=== PATIENT | male | born 1960 | race African-American/Black ===

== ENCOUNTER 2016-08-11 10:33 | Inpatient (IN) | payer BC ==
[2016-08-11 10:38] VITALS: BMI 28.5
--- NOTE | 2016-08-11 12:22 | HP ---
CIWA Score - CIWA Score Nausea/Vomitin-No Nausea/No Vomiting Muscle Tremors: 4-Moderate,w/Arms Extend Anxiety: 4-Mod. Anxious/Guarded Agitation: 4-Moderately Restless Paroxysmal Sweats: 1-Minimal Palms Moist Orientation: 0-Oriented Tacttile Disturbances: 3-Moderate Itch/Numb/Burn Auditory Disturbances: 0-None Visual Disturbances: 0-None Headache: 0-None Present CIWA-Ar Total Score: 16 Admission ROS BHS - HPI Chief Complaint: DETOX TX FOR ALCOHOL DEPENDENCE Allergies/Adverse Reactions: Allergies Allergy/AdvReac Type Severity Reaction Status Date / Time No Known Allergies Allergy Verified 08/11/16 11:38 History of Present Illness: 55 Y/O AA/MALE WITH A HX ALCOHOL DEPENDENCE SEEKING DETOX [place] Exam Limitations: No Limitations - Ebola screening Have you traveled outside of the country in the last 21 days: No Have you had contact with anyone from an Ebola affected area: No Have you been sick,other than usual withdrawal symptoms: No Do you have a fever: No - Review of Systems Constitutional: Chills, Night Sweats, Changes in sleep EENT: reports: Blurred Vision (WEARS GLASSES), Tearing, Dental Problems (HX TOOTH EXTRACTIONS) Respiratory: reports: Shortness of Breath (ASTHMA A CHILD --DOES NOT TAKE ANY INHALER), Wheezing Cardiac: reports: Lightheadedness GI: reports: Nausea, Vomiting, Indigestion : reports: No Symptoms Reported Musculoskeletal: reports: Back Pain, Joint Pain Integumentary: reports: Rash (HX ECZEMA) Neuro: reports: Tremors, Unsteady Gait (USES CANE), Dizziness Endocrine: reports: No Symptoms Reported Psychiatric: reports: Orientated x3, Anxious Other Systems: Reviewed and Negative Patient History - Patient Medical History Hx Anemia: No Hx Asthma: Yes (IN [place] AND NEVER ON ANY MDI) Hx Chronic Obstructive Pulmonary Disease (COPD): No Hx Cancer: No Hx Cardiac Disorders: No Hx Congestive Heart Failure: No Hx Hypertension: No Hx Hypercholesterolemia: Yes (NO MEDS) Hx Pacemaker: No HX Cerebrovascular Accident: No Hx Seizures: No Hx Dementia: No Hx Diabetes: No Hx Gastrointestinal Disorders: No Hx Liver Disease: Yes (ELEVATED LIVER ENZYMES) Hx Genitourinary Disorders: No Hx Sexually Transmitted Disorders: No Hx Renal Disease (ESRD): No Hx Thyroid Disease: No Hx Human Immunodeficiency Virus (HIV): No Hx Hepatitis C: No Hx Depression: Yes (NEVER TAKEN MED) Hx Suicide Attempt: No (DENIES) Hx Bipolar Disorder: No Hx Schizophrenia: No - Patient Surgical History Past Surgical History: Yes Hx Neurologic Surgery: No Hx Cataract Extraction: No Hx Cardiac Surgery: No Hx Lung Surgery: No Hx Breast Surgery: No Hx Breast Biopsy: No Hx Abdominal Surgery: No Hx Appendectomy: No Hx Cholecystectomy: No Hx Genitourinary Surgery: No Hx Section: No Hx Orthopedic Surgery: Yes (arthroscopic sx, left knee in 09/03/2014) Anesthesia Reaction: No - PPD History Previous Implant?: Yes Documented Results: Negative w/proof Implanted On Prior R Admission?: Yes Date: 02/05/16 Results: 0 MM PPD to be Administered?: No - Reproductive History Patient is a Female of Child Bearing Age (11 -55 yrs old): No (MALE) - Smoking Cessation Smoking history: Current some day smoker Have you smoked in the past 12 months: Yes Aproximately how many cigarettes per day: 1 If you are a former smoker, when did you quit?: 2014 Hx Chewing Tobacco Use: No Initiated information on smoking cessation: Yes 'Breaking Loose' booklet given: 08/11/16 - Substance & Tx. History Hx Alcohol Use: Yes (COGNAC) Hx Substance Use: No Substance Use Type: Alcohol Hx Substance Use Treatment: Yes ([facility]) - Substances Abused Alcohol Route: Oral Frequency: Daily Amount used: 1 AND 1/2 PINTS VODKA Age of first use: 31 Date of Last Use: 08/11/16 Family Disease History - Family Disease History Family Disease History: Diabetes: Mother (), Heart Disease: Mother, CA: Father (prostate; ) Admission Physical Exam BHS - Vital Signs Vital Signs: Vital Signs - 24 hr 08/11/16 10:35 Temperature 97.8 F Pulse Rate 85 Respiratory 18 Rate Blood Pressure 126/76 - Physical General Appearance: Yes: Moderate Distress, Irritable, Anxious HEENTM: Yes: EOMI, Normocephalic, NITIN, Pharynx Normal Respiratory: Yes: Chest Non-Tender, Lungs Clear, Normal Breath Sounds, No Respiratory Distress Neck: Yes: Supple, Trachea in good position Breast: Yes: Breast Exam Deferred Cardiology: Yes: Regular Rhythm, Regular Rate, S1, S2 Abdominal: Yes: Normal Bowel Sounds, Non Tender, Soft Genitourinary: Yes: Other (N/C) Back: Yes: Within Normal Limits Musculoskeletal: Yes: full range of Motion, Gait Steady Extremities: Yes: Normal Range of Motion, Non-Tender, Tremors Neurological: Yes: police liaison II-XII NML intact, Fully Oriented, Alert Integumentary: Yes: Dry, Warm Lymphatic: Yes: Within Normal Limits - Diagnostic (1) Alcohol dependence with uncomplicated withdrawal Current Visit: Yes Status: Acute (2) Eczema Current Visit: Yes Status: Chronic Qualifiers: Eczema type: flexural Qualified Code(s): L20.82 - Flexural eczema (3) GERD (gastroesophageal reflux disease) Current Visit: Yes Status: Chronic Qualifiers: Esophagitis presence: without esophagitis Qualified Code(s): K21.9 - Gastro-esophageal reflux disease without esophagitis (4) Nicotine abuse Current Visit: Yes Status: Chronic Cleared for Admission S - Detox or Rehab [facility] Level of Care: Medically Managed Detox Regimen/Protocol: Librium S Breath Alcohol Content Breath Alcohol Content: 0.200 Urine Drug Screen - Results Drug Screen Negative: Yes
[2016-08-11] MEDS ORDERED: LOPERAMIDE HCL 2 MG CAPSULE PO PRN (12:29)
[2016-08-11] MEDS ORDERED: MAG HYDROX/AL HYDROX/SIMETH 30 ML UNIT-DOSE CUP PO PRN (12:29)
[2016-08-11] MEDS ORDERED: MAGNESIUM HYDROX 2400MG/30ML ORAL SUSPENSION 30 ML CUP PO PRN (12:29)
[2016-08-11] MEDS ORDERED: ACETAMINOPHEN 325 MG TABLET (FP) PO PRN (12:29)
[2016-08-11] MEDS ORDERED: diphenhydrAMINE HCL 50 MG CAPSULE PO PRN (12:29)
[2016-08-11] MEDS ORDERED: chlordiazePOXIDE HCL 25 MG CAPSULE PO PRN (12:29)
[2016-08-11] MEDS ORDERED: NICOTINE POLACRILEX 2 MG GUM BUC PRN (12:29)
[2016-08-11] MEDS ORDERED: guaiFENesin/D-METHORPHAN HB 10 ML UNIT-DOSE CUPS PO PRN (12:29)
[2016-08-11] MEDS ORDERED: hydrOXYzine PAMOATE 25 MG CAPSULE (FP) PO PRN (12:29)
[2016-08-11] MEDS ORDERED: P-EPHED 60MG/TRIPROLIDI 2.5MG TABLET PO PRN (12:29)
[2016-08-11] MEDS ORDERED: MAGNESIUM CITRATE 300 ML BOTTLE PO PRN (12:29)
[2016-08-11] MEDS ORDERED: IBUPROFEN 400 MG TABLET (FP) PO PRN (12:29)
[2016-08-11] MEDS ORDERED: MENTHOL/PHENOL 1 EACH UD MM PRN (12:29)
[2016-08-11] MEDS ORDERED: chlordiazePOXIDE HCL 25 MG CAPSULE PO ONE (12:50)
[2016-08-11] MEDS: HYDROCORTISONE 1% TOPICAL CREAM 30 GM TUBE TP SCH ×2 (13:23→22:30)
--- NOTE | 2016-08-11 17:12 | EKG ---
Test Reason : Blood Pressure : / mmHG Vent. Rate : 085 BPM Atrial Rate : 085 BPM P-R Int : 158 ms QRS Dur : 084 ms QT Int : 388 ms P-R-T Axes : 052 -11 008 degrees QTc Int : 461 ms NORMAL SINUS RHYTHM POSSIBLE LEFT ATRIAL ENLARGEMENT SEPTAL INFARCT , AGE UNDETERMINED ABNORMAL ECG NO PREVIOUS ECGS AVAILABLE Confirmed by BEATA TEJEDA MD ([id number]) on 08/11/2016 5:12:44 PM Referred By: Confirmed By:BEATA TEJEDA MD
[2016-08-11] MEDS: chlordiazePOXIDE HCL 25 MG CAPSULE PO SCH ×2 (17:22→22:02)
[2016-08-11 19:02] LABS: URINE APPEARANCE CLEAR; URINE BILIRUBIN NEGATIVE (NEGATIVE); URINE COLOR LTYELLOW; URINE GLUCOSE (UA) NEGATIVE (NEGATIVE); URINE KETONE NEGATIVE (NEGATIVE); URINE LEUK ESTERASE NEGATIVE (NEGATIVE); URINE NITRITE NEGATIVE (NEGATIVE); URINE PROTEIN NEGATIVE (NEGATIVE); URINE UROBILINOGEN NEGATIVE E.U./dl (0.2-1.0)
[2016-08-11 19:39] LABS: URINE BLOOD 1+ (NEGATIVE)
[2016-08-11 20:41] LABS: URINE MUCUS RARE; URINE RBC <1 /hpf (0-3); URINE WBC <1 /hpf (3-5)
[2016-08-11] MEDS: THIAMINE HCL 100 MG TABLET (FP) PO SCH (22:02)
[2016-08-12] MEDS: chlordiazePOXIDE HCL 25 MG CAPSULE PO SCH ×4 (05:27→22:06)
[2016-08-12] MEDS: HYDROCORTISONE 1% TOPICAL CREAM 30 GM TUBE TP SCH ×2 (10:19→22:06)
[2016-08-12] MEDS: PRENATAL VITAMINS W/ FOLIC ACID TABLET (FP) PO SCH (10:20)
[2016-08-12 10:39] LABS: MCH 32.4 pg (25.7-33.7); MCHC 33.2 g/dl (32.0-35.9); MEAN CELL VOLUME 97.7 fl (80-96); MEAN PLT VOLUME 9.4 fl (7.5-11.1); PLATELET COUNT 204 K/MM3 (134-434); RDW 15.3 % (11.9-15.9); WHITE BLOOD COUNT 3.4 K/mm3 (4.0-10.0)
[2016-08-12 11:11] LABS: ALK PHOS 283 U/L (45-117); ANION GAP 10 (8-16); CALCIUM 8.6 mg/dL (8.5-10.1); CO2 27 mmol/L (21-32); CREATININE 0.8 mg/dL (0.7-1.3); GLUCOSE,RANDOM 98 mg/dL (74-106); SGOT/AST 109 U/L (15-37); SGPT/ALT 60 U/L (12-78); TOT PROT 7.9 g/dl (6.4-8.2)
--- NOTE | 2016-08-12 11:25 | CONSULT ---
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 Smoking history: Current some day smoker. Have you smoked in the past 12 months: Yes. Aproximately how many cigarettes per day: 1. If you are a former smoker, when did you quit?: 2015. Hx Chewing Tobacco Use: No. Initiated information on smoking cessation: Yes. ' Breaking Loose' booklet given: 08/11/16. - Substance & Tx. History. Hx Alcohol Use: Yes (COGNAC). Hx Substance Use: No. Substance Use Type: Alcohol. Hx Substance Use Treatment: Yes ([facility]). - Substances Abused. Alcohol. Route: Oral. Frequency: Daily. Amount used: 1 AND 1/2 PINTS VODKA. Age of first use: 31. Date of Last Use: 08/11/16 Medical History: Significant for history of Asthma, Hyperlipidemia, Arthritis both knees, elevated liver enzymes and S/p Arthroscopic surgery left knee Psychiatric History: Denies history of previous psychiatric treatment Physical/Sexual Abuse/Trauma History: Denies history of physical, sexual as well as DV relationship Additional Comment: Denies criminal history Mental Status Exam - Mental Status Exam Alert and Oriented to: Time, Place, Person Cognitive Function: Fair Patient Appearance: Well Groomed Mood: Anxious Affect: Appropriate Patient Behavior: Cooperative Speech Pattern: Clear Voice Loudness: Normal Thought Process: Intact Thought Disorder: Not Present Hallucinations: Denies Suicidal Ideation: Denies Homicidal Ideation: Denies Insight/Judgement: Poor Sleep: Poorly Appetite: Fair Muscle strength/Tone: Normal Gait/Station: Normal Psychiatric Findings - Problem List ([place] 1, 2,3) (1) Alcohol dependence with uncomplicated withdrawal Current Visit: Yes Status: Acute (2) Nicotine dependence Current Visit: Yes Status: Acute (3) Eczema Current Visit: Yes Status: Chronic Qualifiers: Eczema type: flexural Qualified Code(s): L20.82 - Flexural eczema (4) GERD (gastroesophageal reflux disease) Current Visit: Yes Status: Chronic Qualifiers: Esophagitis presence: without esophagitis Qualified Code(s): K21.9 - Gastro-esophageal reflux disease without esophagitis (5) History of intrinsic asthma Current Visit: Yes Status: Acute (6) Hyperlipemia Current Visit: Yes Status: Acute (7) Alcohol-induced sleep disorder Current Visit: Yes Status: Acute - Initial Treatment Plan Initial Treatment Plan: 1) Start Ambien 10 mg po HS prn for insomnia. 2) Continue inpatient detoxification
--- NOTE | 2016-08-12 15:25 | PN ---
S CIWA - CIWA Score Nausea/Vomitin Muscle Tremors: 4-Moderate,w/Arms Extend Anxiety: 4-Mod. Anxious/Guarded Agitation: 4-Moderately Restless Paroxysmal Sweats: 3 Orientation: 0-Oriented Tacttile Disturbances: 1-Very Mild Itch/Numbness Auditory Disturbances: 0-None Visual Disturbances: 0-None Headache: 1-Very Mild CIWA-Ar Total Score: 20 BHS Progress Note (SOAP) Subjective: nausea, sweats, interrupted sleep, anxiety, tremors +++ Objective: 08/12/16 15:24 Vital Signs - 24 hr 08/11/16 08/11/16 08/12/16 17:27 21:46 00:23 Temperature 99.3 F 97.8 F Pulse Rate 99 H 105 H Respiratory 18 19 18 Rate Blood Pressure 129/74 149/86 08/12/16 08/12/16 08/12/16 03:25 06:02 09:30 Temperature 97.5 F L 97.4 F L Pulse Rate 91 H 110 H Respiratory 18 18 20 Rate Blood Pressure 146/95 138/92 08/12/16 13:19 Temperature 97.6 F Pulse Rate 85 Respiratory 18 Rate Blood Pressure 146/91 tachycardia, htn Laboratory Tests 08/11/16 08/12/16 08/12/16 14:00 06:15 06:15 WBC 3.4 L RBC 4.55 Hgb 14.8 Hct 44.5 MCV 97.7 H MCHC 33.2 RDW 15.3 Plt Count 204 D MPV 9.4 Sodium 140 Potassium 3.9 D Chloride 103 Carbon Dioxide 27 Anion Gap 10 BUN 7 Creatinine 0.8 Creat Clearance w eGFR > 60 Random Glucose 98 Calcium 8.6 Total Bilirubin 1.0 D AST 109 H ALT 60 Alkaline Phosphatase 283 H Total Protein 7.9 Albumin 4.0 D Urine Color Ltyellow Urine Appearance Clear Urine pH 6.0 Ur Specific [place] 1.008 Urine Protein Negative Urine Glucose (UA) Negative Urine Ketones Negative Urine Blood 1+ H Urine Nitrite Negative Urine Bilirubin Negative Urine Urobilinogen Negative Ur Leukocyte Esterase Negative Urine RBC <1 Urine WBC <1 Ur Epithelial Cells Rare Urine Mucus Rare RPR Titer 08/12/16 06:15 WBC RBC Hgb Hct MCV MCHC RDW Plt Count MPV Sodium Potassium Chloride Carbon Dioxide Anion Gap BUN Creatinine Creat Clearance w eGFR Random Glucose Calcium Total Bilirubin AST ALT Alkaline Phosphatase Total Protein Albumin Urine Color Urine Appearance Urine pH Ur Specific [place] Urine Protein Urine Glucose (UA) Urine Ketones Urine Blood Urine Nitrite Urine Bilirubin Urine Urobilinogen Ur Leukocyte Esterase Urine RBC Urine WBC Ur Epithelial Cells Urine Mucus RPR Titer Nonreactive macrocytosis Assessment: 08/12/16 15:25 withdrawawl sx present Plan: cont detox, prn doses encouraged, hydration, ambulation
[2016-08-12] MEDS: THIAMINE HCL 100 MG TABLET (FP) PO SCH (22:07)
[2016-08-12] MEDS: ZOLPIDEM TARTRATE 10 MG TABLET (PARK CARE ONLY) PO PRN (22:07)
[2016-08-13] MEDS: chlordiazePOXIDE HCL 25 MG CAPSULE PO SCH ×2 (05:35→10:12)
--- NOTE | 2016-08-13 09:56 | PN ---
S CIWA - CIWA Score Nausea/Vomitin Muscle Tremors: 3 Anxiety: 2 Agitation: 2 Paroxysmal Sweats: 3 Orientation: 0-Oriented Tacttile Disturbances: 1-Very Mild Itch/Numbness Auditory Disturbances: 0-None Visual Disturbances: 0-None Headache: 1-Very Mild CIWA-Ar Total Score: 14 S Progress Note (SOAP) Subjective: shakes, sweats, restlessness and abdominal cramps Objective: 08/13/16 09:54 Vital Signs - 8 hr 08/13/16 08/13/16 03:25 06:18 Temperature 96.9 F L Pulse Rate 89 Respiratory 16 18 Rate Blood Pressure 134/90 Laboratory Last Values WBC 3.4 K/mm3 (4.0-10.0) L 08/12/16 06:15 RBC 4.55 M/mm3 (4.00-5.60) 08/12/16 06:15 Hgb 14.8 GM/dL (11.7-16.9) 08/12/16 06:15 Hct 44.5 % (35.4-49) 08/12/16 06:15 MCV 97.7 fl (80-96) H 08/12/16 06:15 MCHC 33.2 g/dl (32.0-35.9) 08/12/16 06:15 RDW 15.3 % (11.9-15.9) 08/12/16 06:15 Plt Count 204 K/MM3 (134-434) D 08/12/16 06:15 MPV 9.4 fl (7.5-11.1) 08/12/16 06:15 Sodium 140 mmol/L (136-145) 08/12/16 06:15 Potassium 3.9 mmol/L (3.5-5.1) D 08/12/16 06:15 Chloride 103 mmol/L (98-107) 08/12/16 06:15 Carbon Dioxide 27 mmol/L (21-32) 08/12/16 06:15 Anion Gap 10 (8-16) 08/12/16 06:15 BUN 7 mg/dL (7-18) 08/12/16 06:15 Creatinine 0.8 mg/dL (0.7-1.3) 08/12/16 06:15 Creat Clearance w eGFR > 60 (>60) 08/12/16 06:15 Random Glucose 98 mg/dL (74-106) 08/12/16 06:15 Calcium 8.6 mg/dL (8.5-10.1) 08/12/16 06:15 Total Bilirubin 1.0 mg/dL (0.2-1.0) D 08/12/16 06:15 AST 109 U/L (15-37) H 08/12/16 06:15 ALT 60 U/L (12-78) 08/12/16 06:15 Alkaline Phosphatase 283 U/L (45-117) H 08/12/16 06:15 Total Protein 7.9 g/dl (6.4-8.2) 08/12/16 06:15 Albumin 4.0 g/dl (3.4-5.0) D 08/12/16 06:15 Urine Color Ltyellow 08/11/16 14:00 Urine Appearance Clear 08/11/16 14:00 Urine pH 6.0 (5.0-8.0) 08/11/16 14:00 Ur Specific [place] 1.008 (1.001-1.035) 08/11/16 14:00 Urine Protein Negative (NEGATIVE) 08/11/16 14:00 Urine Glucose (UA) Negative (NEGATIVE) 08/11/16 14:00 Urine Ketones Negative (NEGATIVE) 08/11/16 14:00 Urine Blood 1+ (NEGATIVE) H 08/11/16 14:00 Urine Nitrite Negative (NEGATIVE) 08/11/16 14:00 Urine Bilirubin Negative (NEGATIVE) 08/11/16 14:00 Urine Urobilinogen Negative E.U./dl (0.2-1.0) 08/11/16 14:00 Ur Leukocyte Esterase Negative (NEGATIVE) 08/11/16 14:00 Urine RBC <1 /hpf (0-3) 08/11/16 14:00 Urine WBC <1 /hpf (3-5) 08/11/16 14:00 Ur Epithelial Cells Rare /hpf (FEW) 08/11/16 14:00 Urine Mucus Rare 08/11/16 14:00 RPR Titer Nonreactive (NONREACTIVE) 08/12/16 06:15 Labs noted Assessment: 08/13/16 09:55 withdrawal sx Plan: continue detox
[2016-08-13] MEDS: HYDROCORTISONE 1% TOPICAL CREAM 30 GM TUBE TP SCH ×2 (10:12→21:57)
[2016-08-13] MEDS: PRENATAL VITAMINS W/ FOLIC ACID TABLET (FP) PO SCH (10:12)
[2016-08-13] MEDS ORDERED: TETRAHYDROZOLINE HCL 1 DROP DROPS OU PRN (15:25)
[2016-08-13] MEDS: chlordiazePOXIDE 5 MG CAPSULE PO SCH ×2 (17:11→22:00)
[2016-08-13] MEDS: THIAMINE HCL 100 MG TABLET (FP) PO SCH (21:57)
[2016-08-13] MEDS: NAPHAZOLINE/PHENIRAMINE OPHTHALMIC 15 ML BOTTLE OU PRN (21:58)
[2016-08-13] MEDS: ZOLPIDEM TARTRATE 10 MG TABLET (PARK CARE ONLY) PO PRN (22:02)
[2016-08-14] MEDS: chlordiazePOXIDE 5 MG CAPSULE PO SCH ×2 (05:50→10:09)
[2016-08-14] MEDS: PRENATAL VITAMINS W/ FOLIC ACID TABLET (FP) PO SCH (10:09)
[2016-08-14] MEDS: NAPHAZOLINE/PHENIRAMINE OPHTHALMIC 15 ML BOTTLE OU PRN (10:10)
[2016-08-14] MEDS: HYDROCORTISONE 1% TOPICAL CREAM 30 GM TUBE TP SCH ×2 (10:10→22:02)
--- NOTE | 2016-08-14 11:40 | PN ---
[id number] 11:36 Last Vital Signs Temp Pulse Resp BP Pulse Ox 97.1 F L 101 H 18 147/93 08/14/16 11:23 08/14/16 11:23 08/14/16 11:23 08/14/16 11:23 Laboratory Tests 08/11/16 08/12/16 08/12/16 14:00 06:15 06:15 WBC 3.4 L RBC 4.55 Hgb 14.8 Hct 44.5 MCV 97.7 H MCHC 33.2 RDW 15.3 Plt Count 204 D MPV 9.4 Sodium 140 Potassium 3.9 D Chloride 103 Carbon Dioxide 27 Anion Gap 10 BUN 7 Creatinine 0.8 Creat Clearance w eGFR > 60 Random Glucose 98 Calcium 8.6 Total Bilirubin 1.0 D AST 109 H ALT 60 Alkaline Phosphatase 283 H Total Protein 7.9 Albumin 4.0 D Urine Color Ltyellow Urine Appearance Clear Urine pH 6.0 Ur Specific [place] 1.008 Urine Protein Negative Urine Glucose (UA) Negative Urine Ketones Negative Urine Blood 1+ H Urine Nitrite Negative Urine Bilirubin Negative Urine Urobilinogen Negative Ur Leukocyte Esterase Negative Urine RBC <1 Urine WBC <1 Ur Epithelial Cells Rare Urine Mucus Rare RPR Titer 08/12/16 06:15 WBC RBC Hgb Hct MCV MCHC RDW Plt Count MPV Sodium Potassium Chloride Carbon Dioxide Anion Gap BUN Creatinine Creat Clearance w eGFR Random Glucose Calcium Total Bilirubin AST ALT Alkaline Phosphatase Total Protein Albumin Urine Color Urine Appearance Urine pH Ur Specific [place] Urine Protein Urine Glucose (UA) Urine Ketones Urine Blood Urine Nitrite Urine Bilirubin Urine Urobilinogen Ur Leukocyte Esterase Urine RBC Urine WBC Ur Epithelial Cells Urine Mucus RPR Titer Nonreactive Labs noted: UA 1+ blood Assessment: 08/14/16 11:39 Withdrawal symptoms Elevated blood pressure Hematuria, microscopic Plan: Continue detox Elevated blood pressure: clonidine 0.1mg q8hr prn Microscopic hematuria: encouraged to drink lots of water, repeat UA
[2016-08-14] MEDS ORDERED: cloNIDine HCL 0.1 MG TABLET PO PRN (11:43)
[2016-08-14] MEDS: chlordiazePOXIDE HCL 10 MG CAPSULE PO SCH ×2 (17:21→22:01)
[2016-08-14 17:27] LABS: URINE APPEARANCE CLEAR; URINE BILIRUBIN NEGATIVE (NEGATIVE); URINE BLOOD NEGATIVE (NEGATIVE); URINE COLOR LTYELLOW; URINE GLUCOSE (UA) NEGATIVE (NEGATIVE); URINE KETONE NEGATIVE (NEGATIVE); URINE LEUK ESTERASE NEGATIVE (NEGATIVE); URINE NITRITE NEGATIVE (NEGATIVE); URINE PROTEIN NEGATIVE (NEGATIVE); URINE UROBILINOGEN 2.0 E.U/dl E.U./dl (0.2-1.0)
[2016-08-14] MEDS: THIAMINE HCL 100 MG TABLET (FP) PO SCH (22:01)
[2016-08-14] MEDS: ZOLPIDEM TARTRATE 10 MG TABLET (PARK CARE ONLY) PO PRN (22:01)
[2016-08-15] MEDS: chlordiazePOXIDE HCL 10 MG CAPSULE PO SCH (05:30)
--- NOTE | 2016-08-15 08:57 | PN ---
BHS Progress Note (SOAP) Subjective: no complaints Objective: 08/15/16 08:55 Vital Signs - 8 hr 08/15/16 08/15/16 03:30 06:07 Temperature 97.1 F L Pulse Rate 98 H Respiratory 18 18 Rate Blood Pressure 145/93 Laboratory Tests 08/11/16 08/12/16 08/12/16 14:00 06:15 06:15 WBC 3.4 L RBC 4.55 Hgb 14.8 Hct 44.5 MCV 97.7 H MCHC 33.2 RDW 15.3 Plt Count 204 D MPV 9.4 Sodium 140 Potassium 3.9 D Chloride 103 Carbon Dioxide 27 Anion Gap 10 BUN 7 Creatinine 0.8 Creat Clearance w eGFR > 60 Random Glucose 98 Calcium 8.6 Total Bilirubin 1.0 D AST 109 H ALT 60 Alkaline Phosphatase 283 H Total Protein 7.9 Albumin 4.0 D Urine Color Ltyellow Urine Appearance Clear Urine pH 6.0 Ur Specific [place] 1.008 Urine Protein Negative Urine Glucose (UA) Negative Urine Ketones Negative Urine Blood 1+ H Urine Nitrite Negative Urine Bilirubin Negative Urine Urobilinogen Negative Ur Leukocyte Esterase Negative Urine RBC <1 Urine WBC <1 Ur Epithelial Cells Rare Urine Mucus Rare RPR Titer 08/12/16 08/14/16 06:15 14:17 WBC RBC Hgb Hct MCV MCHC RDW Plt Count MPV Sodium Potassium Chloride Carbon Dioxide Anion Gap BUN Creatinine Creat Clearance w eGFR Random Glucose Calcium Total Bilirubin AST ALT Alkaline Phosphatase Total Protein Albumin Urine Color Ltyellow Urine Appearance Clear Urine pH 8.0 D Ur Specific [place] 1.008 Urine Protein Negative Urine Glucose (UA) Negative Urine Ketones Negative Urine Blood Negative Urine Nitrite Negative Urine Bilirubin Negative Urine Urobilinogen 2.0 e.u/dl Ur Leukocyte Esterase Negative Urine RBC Urine WBC Ur Epithelial Cells Urine Mucus RPR Titer Nonreactive Assessment: 08/15/16 08:56 completed detox, medically stable Plan: d/c today, f/u rehab [facility]
--- NOTE | 2016-08-15 08:59 | DS ---
[facility] Detox Discharge Summary Admission Date: 08/11/16 Discharge Date: 08/15/16 - History Present History: Alcohol Dependence Pertinent Past History: eczema, nicotine dependence, asthma, GERD, anxiety, depression and insomnia - Physical Exam Results Vital Signs: Vital Signs Temperature 97.1 F L 08/15/16 06:07 Pulse Rate 98 H 08/15/16 06:07 Respiratory Rate 18 08/15/16 06:07 Blood Pressure 145/93 08/15/16 06:07 O2 Sat by Pulse Oximetry (%) Pertinent Admission Physical Exam Findings: withdrawal sx - Treatment Hospital Course: Detox Protocol Followed, Detoxed Safely, Responded well, Discharged Condition Good, Rehab Referral Accepted Patient has Accepted a Rehab Referral to: Yes - Medication Discharge Medications: Ambulatory Orders NK [No Known Home Medication] 08/11/16 - Diagnosis (1) Alcohol dependence with uncomplicated withdrawal Current Visit: Yes Status: Acute (2) Alcohol-induced sleep disorder Current Visit: Yes Status: Acute (3) History of intrinsic asthma Current Visit: Yes Status: Acute (4) Hyperlipemia Current Visit: Yes Status: Acute (5) Nicotine dependence Current Visit: Yes Status: Acute (6) Eczema Current Visit: Yes Status: Chronic Qualifiers: Eczema type: flexural Qualified Code(s): L20.82 - Flexural eczema (7) GERD (gastroesophageal reflux disease) Current Visit: Yes Status: Chronic Qualifiers: Esophagitis presence: without esophagitis Qualified Code(s): K21.9 - Gastro-esophageal reflux disease without esophagitis (8) Nicotine abuse Current Visit: Yes Status: Chronic (9) Drug-induced mood disorder Current Visit: No Status: Suspected - AMA Did Patient Leave Against Medical Advice: No
[2016-08-15 09:16] VITALS: BP 144/85; PULSE 95; TEMP 98.2
== END 2016-08-15 08:55 | disposition home or self-care (01) | DRG 897 ==
LOC: YASAS 10:33 → Y3N 12:43
PROVIDERS: ADMIT Internal Medicine; ATTEND Internal Medicine
PROC: HZ2ZZZZ Detoxification Services for Substance Abuse Treatment (ICD-10-PCS; principal; 2016-08-11)
DX: F10.230 Alcohol dependence with withdrawal, uncomplicated (principal); F17.210 Nicotine dependence, cigarettes, uncomplicated; F10.282 Alcohol dependence with alcohol-induced sleep disorder; F19.24 Other psychoactive substance dependence with psychoactive substance-induced mood disorder; E78.5 Hyperlipidemia, unspecified; L20.82 Flexural eczema; K21.9 Gastro-esophageal reflux disease without esophagitis; R03.0 Elevated blood-pressure reading, without diagnosis of hypertension; D75.89 Other specified diseases of blood and blood-forming organs; R94.5 Abnormal results of liver function studies; Z87.09 Personal history of other diseases of the respiratory system
CPT/HCPCS: 36415; 80053; 81003; 81015; 85027; 86593; 93005; 93010

== ENCOUNTER 2019-03-26 14:30 | Inpatient (IN) | payer OTHER ==
[2019-03-26 19:23] VITALS: BMI 28.2
--- NOTE | 2019-03-26 20:48 | HP ---
CIWA Score Nausea/Vomitin-No Nausea/No Vomiting Muscle Tremors: 4-Moderate,w/Arms Extend Anxiety: 4-Mod. Anxious/Guarded Agitation: 4-Moderately Restless Paroxysmal Sweats: No Perspiration Orientation: 0-Oriented Tacttile Disturbances: 2-Mild Itch/Numbness/Burn Auditory Disturbances: 0-None Visual Disturbances: 0-None Headache: 0-None Present CIWA-Ar Total Score: 14 - Admission Criteria OASAS Guidelines: Admission for Medically Managed Detox: Requires at least one of the followin. CIWA greater than 12 2. Seizures within the past 24 hours 3. Delirium tremens within the past 24 hours 4. Hallucinations within the past 24 hours 5. Acute intervention needed for co occurring medical disorder 6. Acute intervention needed for co occurring psychiatric disorder 7. Severe withdrawal that cannot be handled at a lower level of care (continued vomiting, continued diarrhea, abnormal vital signs) requiring intravenous medication and/or fluids 8. Patient presents the following: CIWA greater than 12 Admission Criteria Met: Admission criteria met Admission ROS [facility] - [facility] Chief Complaint: C/O WITHDRAWAL SX'S. Allergies/Adverse Reactions: Allergies Allergy/AdvReac Type Severity Reaction Status Date / Time No Known Allergies Allergy Verified 03/26/19 19:17 History of Present Illness: 58 Y.O. MALE WITH LONG HX/O ALCOHOLISM HERE FOR DETOX. CLIENT IS SELF REFERRED DUE TO A DOMESTIC CASE. HE IS KNOWN TO THIS PROGRAM LAST ADMISSION 2017. REPORTS HE DRINK APPROX 4 X A WEEK. LAST DRINK EARLY THIS MORNING. + EYE SWEATBAND SHAPER AND + CIWA. DENIES SEIZURES, BLACKOUTS. DENIES ANY SIGNIFICANT PERIOD OF CLEAN TIME. LIVES ALONE, DISABILITY, DENIES LEGALS. Exam Limitations: No Limitations - Ebola screening Have you traveled outside of the country in the last 21 days: No (N) Have you had contact with anyone from an Ebola affected area: No Do you have a fever: No - Review of Systems Constitutional: Loss of Appetite EENT: reports: Other (EYE GLASSES) Respiratory: reports: No Symptoms reported Cardiac: reports: No Symptoms Reported GI: reports: Poor Appetite, Poor Fluid Intake : reports: No Symptoms Reported Musculoskeletal: reports: Back Pain (CHRONIC), Joint Pain (CHRONIC KNEE AND SHOULDER PAINS) Integumentary: reports: No Symptoms Reported Neuro: reports: Numbness, Tremors (R/T WITHDRAWAL) Endocrine: reports: No Symptoms Reported Hematology: reports: No Symptoms Reported Psychiatric: reports: Orientated x3, Anxious, Depressed (DENIES SI) Other Systems: Reviewed and Negative Patient History - Patient Medical History Hx Anemia: No Hx Asthma: Yes (IN [place] AND NEVER ON ANY MDI) Hx Chronic Obstructive Pulmonary Disease (COPD): No Hx Cancer: No Hx Cardiac Disorders: No Hx Congestive Heart Failure: No Hx Hypertension: No Hx Hypercholesterolemia: Yes (NO MEDS) Hx Pacemaker: No HX Cerebrovascular Accident: No Hx Seizures: No Hx Dementia: No Hx Diabetes: No Hx Gastrointestinal Disorders: No Hx Liver Disease: Yes (ELEVATED LIVER ENZYMES) Hx Genitourinary Disorders: No Hx Sexually Transmitted Disorders: No Hx Renal Disease (ESRD): No Hx Thyroid Disease: No Hx Human Immunodeficiency Virus (HIV): No Hx Hepatitis C: No Hx Depression: Yes (NEVER TAKEN MED) Hx Suicide Attempt: No (DENIES) Hx Bipolar Disorder: No Hx Schizophrenia: No - Patient Surgical History Past Surgical History: Yes Hx Neurologic Surgery: No Hx Cataract Extraction: No Hx Cardiac Surgery: No Hx Lung Surgery: No Hx Breast Surgery: No Hx Breast Biopsy: No Hx Abdominal Surgery: No Hx Appendectomy: No Hx Cholecystectomy: No Hx Genitourinary Surgery: No Hx Section: No Hx Orthopedic Surgery: Yes (arthroscopic sx, left knee in 09/03/2014) Anesthesia Reaction: No - PPD History Previous Implant?: Yes Documented Results: Negative w/proof Implanted On Prior [facility] Admission?: Yes Date: 02/05/16 Results: 0 MM PPD to be Administered?: Yes - Smoking Cessation Smoking history: Former smoker Have you smoked in the past 12 months: No Aproximately how many cigarettes per day: 10 If you are a former smoker, when did you quit?: 2008 Cigars Per Day: 0 Hx Chewing Tobacco Use: No Initiated information on smoking cessation: No - Substance & Tx. History Hx Alcohol Use: Yes Hx Substance Use: Yes Substance Use Type: Alcohol, Marijuana (STATES ONE TIME A FEW WEEKS AGO) Hx Substance Use Treatment: Yes ([facility]) - Substances abused Alcohol Substance route: Oral Frequency: 3-6 times per week (4X A WEEK) Amount used: 1 pint of whiskey Age of first use: 34 Date of last use: 03/26/19 Family Disease History - Family Disease History Family Disease History: Diabetes: Mother (), Heart Disease: Mother, CA: Father (prostate; ) Admission Physical Exam [facility] - Vital Signs Vital Signs: Vital Signs - 24 hr 03/26/19 03/26/19 19:19 19:30 Temperature 99.3 F 99.3 F Pulse Rate 104 H 104 H Respiratory 16 16 Rate Blood Pressure 168/83 168/83 - Physical General Appearance: Yes: Alcohol on Breath, Tremorous, Anxious HEENTM: Yes: EOMI, Normocephalic, Normal Voice, NITIN, Pharynx Normal, Other ( MISSING TEETH) Respiratory: Yes: Chest Non-Tender, Lungs Clear, Normal Breath Sounds, No Respiratory Distress, No Accessory Muscle Use Neck: Yes: No masses,lesions,Nodules, Supple, Trachea in good position Breast: Yes: Breast Exam Deferred Cardiology: Yes: Regular Rhythm, Regular Rate, S1, S2 Abdominal: Yes: Normal Bowel Sounds, Non Tender, Soft Genitourinary: Yes: Within Normal Limits (NO C/O OFFERED) Back: Yes: Normal Inspection Musculoskeletal: Yes: full range of Motion, Gait Steady Extremities: Yes: Non-Tender, Tremors, Pedal Edema (PITTING EDEMA OF BLE), Other (DECREASE ROM TO LEFT SHOULD DUE TO AN OLD INJURY FROM A FALL) Neurological: Yes: Fully Oriented, Alert, Normal Mood/Affect (ANXIOUS) Integumentary: Yes: Dry, Warm Lymphatic: Yes: Within Normal Limits - Diagnostic (1) Alcohol dependence with uncomplicated withdrawal Current Visit: Yes Status: Acute (2) Hyperlipemia Current Visit: Yes Status: Chronic Qualifiers: Hyperlipidemia type: unspecified Qualified Code(s): E78.5 - Hyperlipidemia , unspecified (3) GERD (gastroesophageal reflux disease) Current Visit: Yes Status: Chronic Qualifiers: Esophagitis presence: without esophagitis Qualified Code(s): K21.9 - Gastro -esophageal reflux disease without esophagitis (4) Drug-induced mood disorder Current Visit: Yes Status: Suspected Comment: [facility] Cleared for Admission [facility] - Detox or Rehab [facility] Level of Care: Medically Managed Detox Regimen/Protocol: Librium Claeared for Rehab Admission: No Breathalyzer - Breathalyzer Breathalyzer: 0.139 Urine Drug Screen - Test Device Lot number: [id number] Expiration date: 12/21/20 - Control Is test valid?: Yes - Results Drug screen NEGATIVE: No Urine drug screen results: THC-Marijuana
[2019-03-26] MEDS ORDERED: IBUPROFEN 400 MG TABLET (FP) PO PRN (20:56)
[2019-03-26] MEDS ORDERED: MENTHOL/PHENOL 1 EACH UD MM PRN (20:56)
[2019-03-26] MEDS ORDERED: MAGNESIUM CITRATE 300 ML BOTTLE PO PRN (20:56)
[2019-03-26] MEDS ORDERED: guaiFENesin 200 MG/10 ML 10 ML UNIT-DOSE CUPS PO PRN (20:56)
[2019-03-26] MEDS ORDERED: P-EPHED 60MG/TRIPROLIDI 2.5MG TABLET PO PRN (20:56)
[2019-03-26] MEDS ORDERED: METHOCARBAMOL 500 MG TABLET PO PRN (20:56)
[2019-03-26] MEDS ORDERED: ACETAMINOPHEN 325 MG TABLET (FP) PO PRN ×2 (20:56)
[2019-03-26] MEDS ORDERED: hydrOXYzine PAMOATE 25 MG CAPSULE (FP) PO PRN (20:56)
[2019-03-26] MEDS ORDERED: DICYCLOMINE HCL 10 MG CAPSULE PO PRN (20:56)
[2019-03-26] MEDS ORDERED: ONDANSETRON *ODT* 4 MG TABLET SL PRN (20:56)
[2019-03-26] MEDS ORDERED: chlordiazePOXIDE HCL 25 MG CAPSULE PO PRN (20:56)
[2019-03-26] MEDS ORDERED: BISMUTH SUBSALICYLATE 524 MG/30 ML UD PO PRN (20:56)
[2019-03-26] MEDS ORDERED: MAGNESIUM HYDROX 2400MG/30ML ORAL SUSPENSION 30 ML CUP PO PRN (20:56)
[2019-03-26] MEDS: chlordiazePOXIDE HCL 25 MG CAPSULE PO SCH (22:39)
[2019-03-26] MEDS: THIAMINE HCL 100 MG TABLET (FP) PO SCH (22:39)
[2019-03-26] MEDS: MELATONIN 5 MG TABLETS PO PRN (22:40)
[2019-03-27] MEDS: chlordiazePOXIDE HCL 25 MG CAPSULE PO SCH ×4 (05:40→22:12)
--- NOTE | 2019-03-27 10:06 | EKG ---
Test Reason : Blood Pressure : / mmHG Vent. Rate : 075 BPM Atrial Rate : 075 BPM P-R Int : 164 ms QRS Dur : 082 ms QT Int : 426 ms P-R-T Axes : 061 -05 018 degrees QTc Int : 475 ms NORMAL SINUS RHYTHM POSSIBLE LEFT ATRIAL ENLARGEMENT SEPTAL INFARCT (CITED ON OR BEFORE 11-AUG-2016) ABNORMAL ECG WHEN COMPARED WITH ECG OF 11-AUG-2016 13:34, NO SIGNIFICANT CHANGE WAS FOUND Confirmed by MINA TORRES MD ([id number]) on 03/27/2019 10:06:01 AM Referred By: Confirmed By:MINA TORRES MD
[2019-03-27] MEDS: PRENATAL VITAMINS W/ FOLIC ACID TABLET (FP) PO SCH (10:12)
--- NOTE | 2019-03-27 10:29 | PN ---
S CIWA - CIWA Score Nausea/Vomitin-Mild Nausea/No Vomiting Muscle Tremors: 3 Anxiety: 2 Agitation: 2 Paroxysmal Sweats: 2 Orientation: 0-Oriented Tacttile Disturbances: 0-None Auditory Disturbances: 0-None Visual Disturbances: 0-None Headache: 1-Very Mild CIWA-Ar Total Score: 11 S Progress Note (SOAP) Subjective: 58 years old male 1st patient [facility] admission since 2017 was admitted on 03/26/19 for alcohol withdrawal sx management doing well with libirum detox regimen requests to be discharged one day early modify libirum detox regimen to meet the need of the patient Objective: 03/27/19 10:29 Vital Signs Temperature 98.1 F 03/27/19 09:06 Pulse Rate 78 03/27/19 09:06 Respiratory Rate 18 03/27/19 09:06 Blood Pressure 135/77 03/27/19 09:06 O2 Sat by Pulse Oximetry (%) lab pending Assessment: 03/27/19 10:29 alcohol withdrawal sx 03/27/19 10:30 alert oriented x 3 speech clearly ambulating from bed to bathroom steady gait tolerate food and fluid well Plan: continue libirum detox regimen
[2019-03-27 12:25] LABS: ALBUMIN 3.1 g/dl (3.4-5.0); BILIRUBIN,TOTAL 0.7 mg/dL (0.2-1); BLOOD UREA NITROGEN 5.1 mg/dL (7-18); CALCIUM 8.6 mg/dL (8.5-10.1); CREATININE 0.6 mg/dL (0.55-1.3); POTASSIUM 3.3 mmol/L (3.5-5.1); TOT PROT 6.8 g/dl (6.4-8.2)
[2019-03-27 12:30] LABS: HEMATOCRIT 35.8 % (35.4-49); HEMOGLOBIN 11.6 GM/dL (11.7-16.9); MCH 25.9 pg (25.7-33.7); MCHC 32.4 g/dl (32.0-35.9); MEAN CELL VOLUME 80.1 fl (80-96); MEAN PLT VOLUME 8.5 fl (7.5-11.1); PLATELET COUNT 165 K/MM3 (134-434); RBC 4.47 M/mm3 (4.00-5.60); RDW 19.2 % (11.9-15.9); WHITE BLOOD COUNT 2.4 K/mm3 (4.0-10.0)
[2019-03-27] MEDS: MAG HYDROX/AL HYDROX/SIMETH 30 ML UNIT-DOSE CUP PO PRN (13:20)
[2019-03-27] MEDS: POTASSIUM CHLORIDE ORAL LIQUID 20 MEQ/15 ML PO SCH (18:06)
[2019-03-27] MEDS: MELATONIN 5 MG TABLETS PO PRN (22:12)
[2019-03-27] MEDS: THIAMINE HCL 100 MG TABLET (FP) PO SCH (22:12)
[2019-03-27 22:45] LABS: EPI CELLS 5.7 /HPF (0-5/HPF); HYALINE CASTS 19 /lpf (0-8); PH,URINE 6.5 (5.0-8.0); URINE APPEARANCE CLEAR; URINE BACTERIA 0.7 /hpf (NEGATIVE); URINE BILIRUBIN 1+ (NEGATIVE); URINE COLOR DK YELLOW; URINE GLUCOSE (UA) NEGATIVE (NEGATIVE); URINE KETONE TRACE (NEGATIVE); URINE LEUK ESTERASE NEGATIVE (NEGATIVE); URINE NITRITE NEGATIVE (NEGATIVE); URINE PROTEIN 1+ (NEGATIVE); URINE RBC 4 /hpf (0-4); URINE WBC 1 /hpf (0-5)
[2019-03-28] MEDS ORDERED: chlordiazePOXIDE HCL 25 MG CAPSULE PO SCH (05:00)
[2019-03-28] MEDS: chlordiazePOXIDE HCL 10 MG CAPSULE PO SCH ×3 (05:23→22:11)
[2019-03-28] MEDS: POTASSIUM CHLORIDE ORAL LIQUID 20 MEQ/15 ML PO SCH ×2 (05:24→17:09)
[2019-03-28] MEDS: PRENATAL VITAMINS W/ FOLIC ACID TABLET (FP) PO SCH (10:15)
--- NOTE | 2019-03-28 15:31 | PN ---
S CIWA - CIWA Score Nausea/Vomitin-No Nausea/No Vomiting Muscle Tremors: 3 Anxiety: 2 Agitation: 2 Paroxysmal Sweats: No Perspiration Orientation: 0-Oriented Tacttile Disturbances: 2-Mild Itch/Numbness/Burn Auditory Disturbances: 2-Mild Harshness/Frighten Visual Disturbances: 0-None Headache: 0-None Present CIWA-Ar Total Score: 11 S Progress Note (SOAP) Subjective: Anxious, Tremors, Sweating. Objective: PATIENT A & O X 3, OBSERVED AMBULATING ON UNIT UNASSISTED. IN NO ACUTE DISTRESS. 03/28/19 15:33 Vital Signs Temperature 97.4 F L 03/28/19 13:43 Pulse Rate 80 03/28/19 13:43 Respiratory Rate 18 03/28/19 13:43 Blood Pressure 143/92 03/28/19 13:43 O2 Sat by Pulse Oximetry (%) Laboratory Tests 03/27/19 03/27/19 03/27/19 08:30 08:30 08:30 WBC 2.4 L RBC 4.47 Hgb 11.6 L Hct 35.8 D MCV 80.1 MCH 25.9 D MCHC 32.4 RDW 19.2 H Plt Count 165 MPV 8.5 Sodium 140 Potassium 3.3 L Chloride 103 Carbon Dioxide 29 Anion Gap 8 BUN 5.1 L Creatinine 0.6 Est GFR (CKD-EPI)AfAm 129.36 Est GFR (CKD-EPI)NonAf 111.61 Random Glucose 85 Calcium 8.6 Total Bilirubin 0.7 AST 168 H ALT 63 H Alkaline Phosphatase 213 H Total Protein 6.8 Albumin 3.1 L Urine Color Urine Appearance Urine pH Ur Specific [place] Urine Protein Urine Glucose (UA) Urine Ketones Urine Blood Urine Nitrite Urine Bilirubin Urine Urobilinogen Ur Leukocyte Esterase Urine WBC (Auto) Urine RBC (Auto) Urine Casts (Auto) U Epithel Cells (Auto) U Sm Round Cell (Auto) Urine Bacteria (Auto) RPR Titer Nonreactive 03/27/19 17:44 WBC RBC Hgb Hct MCV MCH MCHC RDW Plt Count MPV Sodium Potassium Chloride Carbon Dioxide Anion Gap BUN Creatinine Est GFR (CKD-EPI)AfAm Est GFR (CKD-EPI)NonAf Random Glucose Calcium Total Bilirubin AST ALT Alkaline Phosphatase Total Protein Albumin Urine Color Dk yellow Urine Appearance Clear Urine pH 6.5 Ur Specific [place] 1.021 Urine Protein 1+ H Urine Glucose (UA) Negative Urine Ketones Trace H Urine Blood Negative Urine Nitrite Negative Urine Bilirubin 1+ H Urine Urobilinogen 1.0 Ur Leukocyte Esterase Negative Urine WBC (Auto) 1 Urine RBC (Auto) 4 Urine Casts (Auto) 19 U Epithel Cells (Auto) 5.7 U Sm Round Cell (Auto) None seen Urine Bacteria (Auto) 0.7 RPR Titer LABS NOTED. PATIENT HAS HAD ELEVATED LIVER ENZYME LEVELS ON AND LOW WBC LEVELS PREVIOUS ADMISSIONS. 03/28/19 15:41 Assessment: 03/28/19 15:39 WITHDRAWAL SYMPTOMS. ELEVATED BLOOD PRESSURE (NO HISTORY OF HYPERTENSION REPORTED BY PATIENT ON DETOX ADMISSION PHYSICAL ASSESSMENT). HYPOKALEMIA. LEUKOPENIA. 03/28/19 15:41 Plan: CONTINUE DETOX. CONTINUE K-DUR PO. K LEVEL TO BE RE-CHECKED TOMORROW AM. HEPATIC FUNCTION PANEL ORDERED FOR TOMORROW AM FOR ELEVATED LIVER ENZYME VALUES NOTED ON DETOX ADMISSION LABORATORY ASSESSMENT.
[2019-03-28] MEDS: NAPHAZOLINE/PHENIRAMINE OPHTHALMIC 15 ML BOTTLE OU PRN ×2 (17:11→22:11)
[2019-03-28] MEDS: THIAMINE HCL 100 MG TABLET (FP) PO SCH (22:11)
[2019-03-28] MEDS: MELATONIN 5 MG TABLETS PO PRN (22:12)
[2019-03-29] MEDS ORDERED: chlordiazePOXIDE HCL 10 MG CAPSULE PO PRN
[2019-03-29] MEDS ORDERED: chlordiazePOXIDE HCL 10 MG CAPSULE PO SCH (05:00)
[2019-03-29] MEDS: POTASSIUM CHLORIDE ORAL LIQUID 20 MEQ/15 ML PO SCH (05:48)
[2019-03-29] MEDS: chlordiazePOXIDE HCL 10 MG CAPSULE PO SCH ×2 (05:48→17:27)
[2019-03-29] MEDS: NAPHAZOLINE/PHENIRAMINE OPHTHALMIC 15 ML BOTTLE OU PRN (09:02)
[2019-03-29] MEDS: PRENATAL VITAMINS W/ FOLIC ACID TABLET (FP) PO SCH (10:44)
[2019-03-29 15:25] LABS: BILIRUBIN,DIRECT 0.3 mg/dL (0.0-0.2); BILIRUBIN,TOTAL 0.7 mg/dL (0.2-1); TOT PROT 6.4 g/dl (6.4-8.2)
--- NOTE | 2019-03-29 15:33 | PN ---
S CIWA - CIWA Score Nausea/Vomitin-No Nausea/No Vomiting Muscle Tremors: 2 Anxiety: 2 Agitation: 0-Normal Activity Paroxysmal Sweats: No Perspiration Orientation: 0-Oriented Tacttile Disturbances: 0-None Auditory Disturbances: 0-None Visual Disturbances: 2-Mild Sensitivity Headache: 0-None Present CIWA-Ar Total Score: 6 BHS Progress Note (SOAP) Subjective: Anxious, Tremors, Fatigue. Objective: PATIENT A & O X 3, OBSERVED AMBULATING ON UNIT UNASSISTED. IN NO ACUTE DISTRESS. 03/29/19 15:32 Vital Signs Temperature 97.9 F 03/29/19 13:37 Pulse Rate 94 H 03/29/19 13:37 Respiratory Rate 18 03/29/19 13:37 Blood Pressure 136/88 03/29/19 13:37 O2 Sat by Pulse Oximetry (%) Laboratory Tests 03/27/19 03/27/19 03/27/19 08:30 08:30 08:30 WBC 2.4 L RBC 4.47 Hgb 11.6 L Hct 35.8 D MCV 80.1 MCH 25.9 D MCHC 32.4 RDW 19.2 H Plt Count 165 MPV 8.5 Sodium 140 Potassium 3.3 L Chloride 103 Carbon Dioxide 29 Anion Gap 8 BUN 5.1 L Creatinine 0.6 Est GFR (CKD-EPI)AfAm 129.36 Est GFR (CKD-EPI)NonAf 111.61 Random Glucose 85 Calcium 8.6 Total Bilirubin 0.7 Direct Bilirubin AST 168 H ALT 63 H Alkaline Phosphatase 213 H Total Protein 6.8 Albumin 3.1 L Urine Color Urine Appearance Urine pH Ur Specific [place] Urine Protein Urine Glucose (UA) Urine Ketones Urine Blood Urine Nitrite Urine Bilirubin Urine Urobilinogen Ur Leukocyte Esterase Urine WBC (Auto) Urine RBC (Auto) Urine Casts (Auto) U Epithel Cells (Auto) U Sm Round Cell (Auto) Urine Bacteria (Auto) RPR Titer Nonreactive 03/27/19 03/29/19 17:44 08:15 WBC RBC Hgb Hct MCV MCH MCHC RDW Plt Count MPV Sodium Potassium 4.0 Chloride Carbon Dioxide Anion Gap BUN Creatinine Est GFR (CKD-EPI)AfAm Est GFR (CKD-EPI)NonAf Random Glucose Calcium Total Bilirubin 0.7 Direct Bilirubin 0.3 H AST 102 H ALT 61 Alkaline Phosphatase 305 H Total Protein 6.4 Albumin 3.0 L Urine Color Dk yellow Urine Appearance Clear Urine pH 6.5 Ur Specific [place] 1.021 Urine Protein 1+ H Urine Glucose (UA) Negative Urine Ketones Trace H Urine Blood Negative Urine Nitrite Negative Urine Bilirubin 1+ H Urine Urobilinogen 1.0 Ur Leukocyte Esterase Negative Urine WBC (Auto) 1 Urine RBC (Auto) 4 Urine Casts (Auto) 19 U Epithel Cells (Auto) 5.7 U Sm Round Cell (Auto) None seen Urine Bacteria (Auto) 0.7 RPR Titer LABS NOTED. RESULT OF REPEAT POTASSIUM LEVEL NOTED. LEVEL NOW NOTED TO BE WITHIN NORMAL RANGE - WILL D/C K-DUR. RESULTS OF HEPATIC FUNCTION PANEL NOTED. MODERATE DECREASE NOTED IN AST LEVEL . SLIGHT DECREASE NOTED IN ALT LEVEL (LEVEL NOW NOTED TO BE WITHIN NORMAL RANGE). INCREASE NOTED IN ALKALINE PHOSPHATASE LEVEL. RESULTS OF DETOX ADMISSION QFT /TB TEST PENDING. 03/29/19 15:34 Assessment: 03/29/19 15:32 WITHDRAWAL SYMPTOMS. LEUKOPENIA. ELEVATED AST LEVEL. ELEVATED ALKALINE PHOSPHATASE LEVEL. 03/29/19 15:36 Plan: CONTINUE DETOX. INCREASE DAILY PO WATER INTAKE. PATIENT SCHEDULED FOR D/C FROM DETOX UNIT TOMORROW.
[2019-03-29] MEDS: MELATONIN 5 MG TABLETS PO PRN (22:14)
[2019-03-29] MEDS: THIAMINE HCL 100 MG TABLET (FP) PO SCH (22:14)
[2019-03-30] MEDS ORDERED: chlordiazePOXIDE HCL 10 MG CAPSULE PO SCH (05:00)
[2019-03-30] MEDS ORDERED: chlordiazePOXIDE HCL 10 MG CAPSULE PO ONE (05:00)
[2019-03-30] MEDS: MAG HYDROX/AL HYDROX/SIMETH 30 ML UNIT-DOSE CUP PO PRN (06:01)
[2019-03-30 06:40] VITALS: BP 125/79; PULSE 80; TEMP 97.8
--- NOTE | 2019-03-30 18:20 | DS ---
[facility] Detox Discharge Summary Admission Date: 03/26/19 Discharge Date: 03/30/19 - History Present History: Alcohol Dependence Additional Comments: PATIENT RETURNING HOME. PATIENT REFERRED TO THE [facility] ([place], [place]) FOR AFTERCARE. PATIENT WAS DISCHARGED FROM DETOX UNIT IN STABLE MEDICAL CONDITION. Pertinent Past History: History Of Asthma (During Childhood), Hypercholesterolemia, History Of Elevated Liver Enzymes, Depression, Leukopenia. - Physical Exam Results Vital Signs: Vital Signs Temperature 97.8 F 03/30/19 06:40 Pulse Rate 80 03/30/19 06:40 Respiratory Rate 18 03/30/19 06:40 Blood Pressure 125/79 03/30/19 06:40 O2 Sat by Pulse Oximetry (%) Pertinent Admission Physical Exam Findings: WITHDRAWAL SYMPTOMS. Laboratory Tests 03/27/19 03/27/19 03/27/19 08:30 08:30 08:30 WBC 2.4 L RBC 4.47 Hgb 11.6 L Hct 35.8 D MCV 80.1 MCH 25.9 D MCHC 32.4 RDW 19.2 H Plt Count 165 MPV 8.5 Sodium 140 Potassium 3.3 L Chloride 103 Carbon Dioxide 29 Anion Gap 8 BUN 5.1 L Creatinine 0.6 Est GFR (CKD-EPI)AfAm 129.36 Est GFR (CKD-EPI)NonAf 111.61 Random Glucose 85 Calcium 8.6 Total Bilirubin 0.7 Direct Bilirubin AST 168 H ALT 63 H Alkaline Phosphatase 213 H Total Protein 6.8 Albumin 3.1 L Urine Color Urine Appearance Urine pH Ur Specific [place] Urine Protein Urine Glucose (UA) Urine Ketones Urine Blood Urine Nitrite Urine Bilirubin Urine Urobilinogen Ur Leukocyte Esterase Urine WBC (Auto) Urine RBC (Auto) Urine Casts (Auto) U Epithel Cells (Auto) U Sm Round Cell (Auto) Urine Bacteria (Auto) RPR Titer TB (QFT) Incubation TB Test (QFT) Nil 0.09 TB Test (QFT) Mitogen 1.01 TB Test (QFT) Antigen 0.10 TB Test (QFT) Negative TB Positive Criteria 03/27/19 03/27/19 03/29/19 08:30 17:44 08:15 WBC RBC Hgb Hct MCV MCH MCHC RDW Plt Count MPV Sodium Potassium 4.0 Chloride Carbon Dioxide Anion Gap BUN Creatinine Est GFR (CKD-EPI)AfAm Est GFR (CKD-EPI)NonAf Random Glucose Calcium Total Bilirubin 0.7 Direct Bilirubin 0.3 H AST 102 H ALT 61 Alkaline Phosphatase 305 H Total Protein 6.4 Albumin 3.0 L Urine Color Dk yellow Urine Appearance Clear Urine pH 6.5 Ur Specific [place] 1.021 Urine Protein 1+ H Urine Glucose (UA) Negative Urine Ketones Trace H Urine Blood Negative Urine Nitrite Negative Urine Bilirubin 1+ H Urine Urobilinogen 1.0 Ur Leukocyte Esterase Negative Urine WBC (Auto) 1 Urine RBC (Auto) 4 Urine Casts (Auto) 19 U Epithel Cells (Auto) 5.7 U Sm Round Cell (Auto) None seen Urine Bacteria (Auto) 0.7 RPR Titer Nonreactive TB (QFT) Incubation TB Test (QFT) Nil TB Test (QFT) Mitogen TB Test (QFT) Antigen TB Test (QFT) TB Positive Criteria LABS NOTED. - Treatment Hospital Course: Detox Protocol Followed, Detoxed Safely, Responded well, Discharged Condition Good Patient has Accepted a Rehab Referral to: PATIENT REFERRED TO THE [facility] OP [facility] ([place], [place]). - Medication Discharge Medications: Ambulatory Orders NK [No Known Home Medication] 08/11/16 - Diagnosis (1) Alcohol dependence with uncomplicated withdrawal Status: Acute (2) GERD (gastroesophageal reflux disease) Status: Chronic Qualifiers: Esophagitis presence: without esophagitis Qualified Code(s): K21.9 - Gastro -esophageal reflux disease without esophagitis (3) Hyperlipemia Status: Chronic Qualifiers: Hyperlipidemia type: unspecified Qualified Code(s): E78.5 - Hyperlipidemia , unspecified (4) Drug-induced mood disorder Status: Suspected - AMA Did Patient Leave Against Medical Advice: No BHS CIWA - CIWA Score Nausea/Vomitin-No Nausea/No Vomiting Muscle Tremors: None Anxiety: 0-No Anxiety, at Ease Agitation: 1-Slight > Activity Paroxysmal Sweats: No Perspiration Orientation: 0-Oriented Tacttile Disturbances: 0-None Auditory Disturbances: 0-None Visual Disturbances: 0-None Headache: 0-None Present CIWA-Ar Total Score: 1
[2019-03-31] MEDS ORDERED: chlordiazePOXIDE HCL 10 MG CAPSULE PO ONE (05:00)
== END 2019-03-30 08:58 | disposition home or self-care (01) | DRG 775 ==
LOC: YASAS 14:30 → Y3N 21:35
PROVIDERS: ADMIT Surgery; ATTEND Surgery
PROC: HZ2ZZZZ Detoxification Services for Substance Abuse Treatment (ICD-10-PCS; principal; 2019-03-26)
DX: F10.230 Alcohol dependence with withdrawal, uncomplicated (principal); F19.24 Other psychoactive substance dependence with psychoactive substance-induced mood disorder; K21.9 Gastro-esophageal reflux disease without esophagitis; E78.5 Hyperlipidemia, unspecified; D72.819 Decreased white blood cell count, unspecified; E87.6 Hypokalemia; R03.0 Elevated blood-pressure reading, without diagnosis of hypertension; R94.5 Abnormal results of liver function studies; Z87.891 Personal history of nicotine dependence
CPT/HCPCS: 36415; 80053; 80076; 81003; 84132; 85027; 86480; 86593; 93005; 93010

== ENCOUNTER 2021-01-28 08:15 | Inpatient (IN) | payer OTHER ==
[2021-01-28 09:03] VITALS: BMI 29.1
[2021-01-28] MEDS ORDERED: NICOTINE POLACRILEX 2 MG GUM BUC PRN (09:35)
[2021-01-28] MEDS ORDERED: MAGNESIUM HYDROX 2400MG/30ML ORAL SUSPENSION 30 ML CUP PO PRN (09:41)
[2021-01-28] MEDS ORDERED: IBUPROFEN 400 MG TABLET (FP) PO PRN (09:41)
[2021-01-28] MEDS ORDERED: MAGNESIUM CITRATE 300 ML BOTTLE PO PRN (09:41)
[2021-01-28] MEDS ORDERED: ONDANSETRON *ODT* 4 MG TABLET SL PRN (09:41)
[2021-01-28] MEDS ORDERED: ACETAMINOPHEN 325 MG TABLET (FP) PO PRN ×2 (09:41)
[2021-01-28] MEDS ORDERED: MENTHOL/PHENOL 1 EACH UD MM PRN (09:41)
[2021-01-28] MEDS: hydrOXYzine PAMOATE 25 MG CAPSULE (FP) PO SCH ×2 (11:30→13:18)
[2021-01-28] MEDS: diazePAM 5 MG TABLET PO SCH ×3 (11:30→22:17)
[2021-01-28] MEDS: METHOCARBAMOL 500 MG TABLET PO PRN (11:30)
[2021-01-28] MEDS: PRENATAL VITAMINS W/ FOLIC ACID TABLET (FP) PO SCH (11:31)
[2021-01-28 13:19] LABS: CHLORIDE 103 mmol/L (98-107); SODIUM 139 mmol/L (136-145)
[2021-01-28 13:24] LABS: ALBUMIN 1.9 g/dl (3.4-5.0); CALCIUM 7.7 mg/dL (8.5-10.1); HEMATOCRIT 35.2 % (35.4-49); HEMOGLOBIN 11.8 GM/dL (11.7-16.9); MCH 35.2 pg (25.7-33.7); MCHC 33.4 g/dl (32.0-35.9); MEAN CELL VOLUME 105.4 fl (80-96); MEAN PLT VOLUME 8.6 fl (7.5-11.1); PLATELET COUNT 178 10^3/uL (134-434); RBC 3.34 M/mm3 (4.00-5.60); RDW 20.1 % (11.9-15.9); WHITE BLOOD COUNT 7.5 K/mm3 (4.0-10.0)
[2021-01-28 13:25] LABS: BLOOD UREA NITROGEN 7.3 mg/dL (7-18); CO2 23 mmol/L (21-32); GLUCOSE,RANDOM 107 mg/dL (74-106)
[2021-01-28 13:28] LABS: CREATININE 0.7 mg/dL (0.55-1.3); SGOT/AST 194 U/L (15-37); SGPT/ALT 34 U/L (13-61)
[2021-01-28 13:29] LABS: BILIRUBIN,TOTAL 9.5 mg/dL (0.2-1); TOT PROT 7.3 g/dl (6.4-8.2)
[2021-01-28 13:30] LABS: ALK PHOS 240 U/L (45-117)
[2021-01-28 13:37] LABS: ANION GAP 13 MMOL/L (8-16)
[2021-01-28] MEDS ORDERED: POTASSIUM CHLORIDE ORAL LIQUID 20 MEQ/15 ML PO ONE (14:15)
[2021-01-28] MEDS: MAG HYDROX/AL HYDROX/SIMETH 30 ML UNIT-DOSE CUP PO PRN (16:49)
[2021-01-28] MEDS: POTASSIUM CHLORIDE ORAL LIQUID 20 MEQ/15 ML PO SCH (17:53)
[2021-01-28] MEDS: hydrOXYzine PAMOATE 25 MG CAPSULE (FP) PO PRN (22:17)
[2021-01-28] MEDS: MELATONIN 5 MG TABLETS PO SCH (22:17)
[2021-01-28] MEDS: THIAMINE HCL 100 MG TABLET (FP) PO SCH (22:17)
[2021-01-29] MEDS: diazePAM 5 MG TABLET PO SCH ×4 (05:44→22:21)
[2021-01-29] MEDS: MAG HYDROX/AL HYDROX/SIMETH 30 ML UNIT-DOSE CUP PO PRN ×2 (05:46→22:22)
[2021-01-29] MEDS: POTASSIUM CHLORIDE ORAL LIQUID 20 MEQ/15 ML PO SCH ×2 (07:22→17:35)
[2021-01-29] MEDS: PRENATAL VITAMINS W/ FOLIC ACID TABLET (FP) PO SCH (10:32)
[2021-01-29] MEDS: METHOCARBAMOL 500 MG TABLET PO PRN (10:33)
[2021-01-29] MEDS: hydrOXYzine PAMOATE 25 MG CAPSULE (FP) PO PRN ×2 (10:34→22:20)
[2021-01-29 13:13] LABS: BLOOD UREA NITROGEN 5.3 mg/dL (7-18); CALCIUM 7.6 mg/dL (8.5-10.1)
[2021-01-29 13:20] LABS: CREATININE 0.7 mg/dL (0.55-1.3)
[2021-01-29] MEDS: HYDROCORTISONE 2.5% TOPICAL CREAM 30 GM TUBE TP SCH ×2 (14:18→22:19)
[2021-01-29 16:46] LABS: EPI CELLS 2 /uL (0-25.1); HYALINE CASTS 1 /uL (0-3.1); PH,URINE 6.5 (5.0-8.0); URINE APPEARANCE CLEAR; URINE BILIRUBIN 3+ (NEGATIVE); URINE COLOR ORANGE; URINE GLUCOSE (UA) NEGATIVE (NEGATIVE); URINE KETONE NEGATIVE (NEGATIVE); URINE LEUK ESTERASE 1+ (NEGATIVE); URINE NITRITE POSITIVE (NEGATIVE); URINE PROTEIN 1+ (NEGATIVE); URINE RBC 19 /uL (0-23.9); URINE WBC 2 /uL (0-25.8)
[2021-01-29] MEDS: MELATONIN 5 MG TABLETS PO SCH (22:20)
[2021-01-29] MEDS: THIAMINE HCL 100 MG TABLET (FP) PO SCH (22:21)
[2021-01-30] MEDS: diazePAM 5 MG TABLET PO SCH ×3 (05:34→22:03)
[2021-01-30] MEDS: POTASSIUM CHLORIDE ORAL LIQUID 20 MEQ/15 ML PO SCH ×2 (07:04→17:48)
[2021-01-30] MEDS: HYDROCORTISONE 2.5% TOPICAL CREAM 30 GM TUBE TP SCH ×2 (11:13→22:21)
[2021-01-30] MEDS: PRENATAL VITAMINS W/ FOLIC ACID TABLET (FP) PO SCH (11:14)
[2021-01-30] MEDS: diazePAM 5 MG TABLET PO PRN (14:20)
[2021-01-30] MEDS: BISMUTH SUBSALICYLATE 262 MG/15 ML BTL PO PRN ×2 (18:47→22:07)
[2021-01-30] MEDS: MELATONIN 5 MG TABLETS PO SCH (22:04)
[2021-01-30] MEDS: THIAMINE HCL 100 MG TABLET (FP) PO SCH (22:04)
[2021-01-30] MEDS: hydrOXYzine PAMOATE 25 MG CAPSULE (FP) PO PRN (22:05)
[2021-01-31] MEDS: diazePAM 5 MG TABLET PO SCH ×2 (06:01→18:12)
[2021-01-31] MEDS: POTASSIUM CHLORIDE ORAL LIQUID 20 MEQ/15 ML PO SCH (07:05)
[2021-01-31] MEDS: diazePAM 5 MG TABLET PO PRN (08:25)
[2021-01-31] MEDS: HYDROCORTISONE 2.5% TOPICAL CREAM 30 GM TUBE TP SCH ×2 (10:45→22:29)
[2021-01-31] MEDS: PRENATAL VITAMINS W/ FOLIC ACID TABLET (FP) PO SCH (10:45)
[2021-01-31] MEDS: SULFAMETHOXAZOLE/TRIMETHOPRIM 800MG/160MG D.S. TABLET PO SCH ×2 (16:00→22:25)
[2021-01-31] MEDS: BISMUTH SUBSALICYLATE 262 MG/15 ML BTL PO PRN ×2 (18:15→22:26)
[2021-01-31 21:56] VITALS: TEMP 96.8
[2021-01-31] MEDS: MELATONIN 5 MG TABLETS PO SCH (22:25)
[2021-01-31] MEDS: THIAMINE HCL 100 MG TABLET (FP) PO SCH (22:25)
[2021-01-31] MEDS: hydrOXYzine PAMOATE 25 MG CAPSULE (FP) PO PRN (22:26)
[2021-02-01] MEDS ORDERED: diazePAM 5 MG TABLET PO ONE (06:00)
[2021-02-01 10:02] VITALS: BP 115/78; PULSE 106
== END 2021-02-01 10:39 | disposition home or self-care (01) | DRG 897 ==
LOC: YASAS 08:15 → Y3N 09:40
PROVIDERS: ADMIT Allergy & Immunology; ATTEND Allergy & Immunology
PROC: HZ2ZZZZ Detoxification Services for Substance Abuse Treatment (ICD-10-PCS; principal; 2021-01-28)
DX: F10.230 Alcohol dependence with withdrawal, uncomplicated (principal); N39.0 Urinary tract infection, site not specified; F10.282 Alcohol dependence with alcohol-induced sleep disorder; F19.24 Other psychoactive substance dependence with psychoactive substance-induced mood disorder; E78.5 Hyperlipidemia, unspecified; K21.9 Gastro-esophageal reflux disease without esophagitis; L20.82 Flexural eczema; R74.8 Abnormal levels of other serum enzymes; R19.5 Other fecal abnormalities; Z87.09 Personal history of other diseases of the respiratory system; Z99.89 Dependence on other enabling machines and devices
CPT/HCPCS: 36415; 80048; 80053; 81003; 82272; 85027; 86780; C9803; U0003; U0005